=== PATIENT | female | born 1940 | race Caucasian/White ===

== ENCOUNTER → 2020-02-11 | Outpatient (CLI) | payer MEDICARE, MEDICAID, SELFPAY | END | disposition still patient (30) | LOC: SLB 12:00 → EDSTATUS 02-15 10:00 | PROVIDERS: ATTEND Orthopaedic Surgery | DX: Z20.828 Contact with and (suspected) exposure to other viral communicable diseases (principal); S52.501A Unspecified fracture of the lower end of right radius, initial encounter for closed fracture; G56.01 Carpal tunnel syndrome, right upper limb; X58.XXXA Exposure to other specified factors, initial encounter; Y93.89 Activity, other specified; Y92.89 Other specified places as the place of occurrence of the external cause; Y99.8 Other external cause status | CPT/HCPCS: U0003 ==